=== PATIENT | female | born 1995 | race Caucasian/White ===

== ENCOUNTER 2024-12-27 06:23 | Emergency (ER) | payer OTHER, SELFPAY ==
--- NOTE | ~2024-12-27 | CT_ITS ---
EXAMINATION: CT abdomen pelvis wo con DATE: 12/27/2024 07:59 INDICATION: Left flank pain TECHNIQUE: Computed tomography (CT) of the abdomen and pelvis was performed without intravenous contr ast. Automated exposure control and iterative reconstruction technique were employed. The dose-length product was 1692.62 mGy-cm. COMPARISON: None FINDINGS: Lung bases are clear. Heart size is normal. No pericardial or pleural effusion. 1.7 cm hypodense lesi on in the right hepatic lobe near the confluence of the renal veins. Spleen, pancreas, bilateral adre nal glands are normal. Bilateral nonobstructing nephrolithiasis with 3 mm stone in the right kidney a nd 4 mm and 5-6 mm in the left kidney. In addition there is a 4 mm stone at the proximal most left ur eter with mild left hydronephrosis. No other ureteral stones or right-sided hydronephrosis. Bowels in cluding the appendix are normal. Bladder, anteverted uterus and bilateral adnexa are unremarkable. No free intraperitoneal gas or fluid. No pathologically enlarged abdominal or pelvic lymphadenopathy. B ones are unremarkable. IMPRESSION: 1. Bilateral nephrolithiasis with obstructing 4 mm proximal left ureteral stone with mild left hydron ephrosis. 2. Indeterminate 1.7 cm hypodense hepatic lesion. The absence of known liver disease or primary malig brad is most likely benign but would recommend further evaluation with pre and postcontrast MRI. Reviewed, dictated and finalized at location A. IMPRESSION: 1. Bilateral nephrolithiasis with obstructing 4 mm proximal left ureteral stone with mild left hydronephrosis. 2. Indeterminate 1.7 cm hypodense hepatic lesion. The absence of known liver di sease or primary malignancy is most likely benign but would recommend further e valuation with pre and postcontrast MRI.
[2024-12-27 06:34] VITALS: BP 135/83; PULSE 96; RESP 14; O2SAT 99
[2024-12-27 06:59] LABS: Basophils Percent Auto 0.3 % (0.2-1.2); Eosinophils Absolute Auto 0.2 K/mm3 (0-0.3); Eosinophils Percent Auto 2.1 % (0-4.4); Hematocrit 38.7 % (37.0-47.0); Hemoglobin 12.1 g/dL (12.0-15.0); Immature Granulocyte Absolute 0.03 K/mm3 (0.00-0.031); Immature Granulocyte Percent A 0.3 % (0-0.5); Lymphocytes Absolute Auto 3.65 K/mm3 (0.9-3.2); Lymphocytes Percent Auto 34.7 % (18.3-44.2); Mean Corpuscular HGB Conc 31.3 g/dl (32-36); Mean Corpuscular Hemoglobin 26.8 pg (26-34); Mean Corpuscular Volume 85.8 fl (80-100); Mean Platelet Volume 10.3 fl (7.4-10.4); Monocytes Absolute Auto 0.6 K/mm3 (0.1-0.6); Monocytes Percent Auto 5.8 % (2.6-8.5); Neutrophils Percent Auto 56.8 % (45.5-73.1); Platelet Count Result 324 k/mm3 (150-375); Red Blood Count 4.51 M/mm3 (4.2-5.4); Red Cell Distribution Width 13.7 % (11.5-14.5); White Blood Count 10.5 K/mm3 (4.5-10.0)
[2024-12-27 07:12] LABS: Alanine Aminotransferase 16 U/L (6-35); Albumin Level 4.1 g/dL (3.5-5.1); Alkaline Phosphatase 91 U/L (38-126); Anion Gap 10 mmol/L (4-12); Aspartate Amino Transferase 20 U/L (14-36); Bilirubin,Total 0.5 mg/dL (0.2-1.3); Blood Urea Nitrogen 17 mg/dL (7-17); Carbon Dioxide 20 mmol/L (22-30); Chloride 107 mmol/L (98-107); Estimated CRCL calculation 110 ml/min; Estimated Glomerular Filt Rate > 60; Glucose 142 mg/dL (65-110); Potassium 3.9 mmol/L (3.4-5.0); Sodium 137 mmol/L (137-145); Total Protein 7.3 g/dL (6.3-8.2)
[2024-12-27 07:27] LABS: BEDSIDEPREGUCG Negative (Negative)
[2024-12-27] MEDS: ONDANSETRON INJ 4 MG/2 ML VIAL IV PUSH (07:27)
[2024-12-27] MEDS: HYDROmorphone HCL INJ (*CRX) 2 MG/ML VIAL 0.5 MG IV PUSH (07:27)
[2024-12-27] MEDS: SODIUM CHLORIDE 0.9% IV 1,000 ML 999 ML IV CONT (07:28)
[2024-12-27 07:41] LABS: Add Urine Microscopic? YES; Appearance Urine Cloudy (Clear); Bacteria Urine 1+ /hpf; Bilirubin Urine Negative (Negative); Blood Urine 3+ (Negative); Color Urine Dark Yellow (Yellow); Glucose Urine UA Negative (Negative); Ketones Urine Trace mg/dL (Negative); Leukocyte Esterase Ur 1+ LEU/UL (Negative); Need Manual Microscopic Reviewed; Nitrate Urine Negative (Negative); Non Pathogenic Casts 0-2; Protein Urine 1+ mg/dL (Negative); RBC Urine >100 /hpf (0-2); Specific Grav Ur 1.026 (1.001-1.035); Squamous Epithelial Cell Urine Many /hpf (Few); pH Urine 5.5 (5.0-9.0)
[2024-12-27 07:49] VITALS: BP 143/89; PULSE 80; RESP 18; O2SAT 100
[2024-12-27 08:41] VITALS: BP 118/76; PULSE 80; RESP 15; O2SAT 100
--- NOTE | 2024-12-27 08:52 | ED_ITS ---
HPI - Abdominal Pain General Chief Complaint: Abdominal Pain Stated Complaint: possible left sided kidney stones Time Seen by Provider: 12/27/24 07:09 Source: patient, RN notes reviewed and old records reviewed Mode of arrival: ambulatory Limitations: no limitations History of Present Illness HPI narrative: This is a 29 year old female with history of kidney stones who presents for evaluation of left flank pain . She reports her pain started at 4 am this morning. She reports left flank pain that is radiating to her lower abdomen. She has nausea without vomiting. She took excederin for her pain without relief. She reports this pain is similar to previous episode of kidney stone 2 years ago. She reports pain 8/10. Related Data Allergies Allergy/AdvReac Type Severity Reaction Status Date / Time No Known Allergies Allergy Verified 12/27/24 07:25 [facility] Past Medical History Medical History (Updated 12/27/24 @ 09:05 by Milady Barcenas MD) Kidney stone Surgical History Surgical History (Updated 12/27/24 @ 08:59 by Milady Barcenas MD) No pertinent past surgical history Social History Social History (Updated 12/27/24 @ 08:58 by Milady Barcenas MD) Smoking status: Never smoker Exam 2 Const: General: no acute distress and alert Nutritional Appearance: well nourished and obese Orientation/consciousness: patient oriented x3 HENMT: Head: normal to inspection Eyes: EOM: EOMs intact bilaterally Resp: Effort & Inspection: normal respiratory effort Auscultation: clear to auscultation bilaterally Cardio: Rate: regular rate Rhythm: regular rhythm Heart sounds: no murmurs GI: GI Palp: Yes Soft to palpation, No Tenderness to palpation present (GI) and No Guarding due to palpation present (GI) Auscultation: normal bowel sounds : General: Yes no CVA tenderness Back/Spine/Pelvis: Back: no CVA tenderness Skin: General skin exam: normal color Rashes: no rashes Wounds: no wounds Neuro: General: patient oriented x3 and moves all extremities Cranial nerves: Yes Nystagmus not present Extrem: General: normal to inspection Psych: Mental Status: mental status grossly normal Affect: normal affect Attitude: cooperative Course Reevaluation(s) Reevaluation #1: Patient feels much better. I discussed she has left proximal stone that will need to pass. She understands discharge plan and follow up with urology Date: 12/27/24 Time: 09:02 Vital Signs Vital signs: Vital Signs Pulse Rate 96 12/27/24 06:34 Respiratory Rate 14 12/27/24 06:34 Blood Pressure 135/83 12/27/24 06:34 Pulse Oximetry 99 12/27/24 06:34 Pulse Rate 80 12/27/24 08:41 Respiratory Rate 15 12/27/24 08:41 Blood Pressure 118/76 12/27/24 08:41 Pulse Oximetry 100 12/27/24 08:41 MDM - Abdominal Pain MDM Narrative Medical decision making narrative: Patient reports with left flank pain. CT and labs were ordered. Wbc 10.5 with urine with rbc greater than [address] with bilateral nephrolithiasis and left proximal ureter stone. She was given zofran. Dilaudid 0.5 mg IV for pain. Her pain has improved. Stone is 4 mm without signs of sepsis so will discharge home with urology follow up . She was given return precautions. Differential Diagnosis Differential diagnosis: Likely abdominal pain, calculus of kidney, constipation, diverticulitis, endometriosis and gastroenteritis Medical Records Attestation: I reviewed the patient's medical records. Lab Data Attestation: I reviewed the patient's lab results. 12/27/24 06:53 12/27/24 06:53 Labs: Lab Results 12/27/24 12/27/24 12/27/24 Range/Units 06:53 07:06 07:24 WBC 10.5 H (4.5-10.0) K/mm3 RBC 4.51 (4.2-5.4) M/mm3 Hgb 12.1 (12.0-15.0) g/dL Hct 38.7 (37.0-47.0) % MCV 85.8 (80-100) fl MCH 26.8 (26-34) pg MCHC 31.3 L (32-36) g/dl RDW 13.7 (11.5-14.5) % Plt Count 324 (150-375) k/mm3 MPV 10.3 (7.4-10.4) fl Immature Gran % (Auto) 0.3 (0-0.5) % Neut % (Auto) 56.8 (45.5-73.1) % Lymph % (Auto) 34.7 (18.3-44.2) % Harris % (Auto) 5.8 (2.6-8.5) % Eos % (Auto) 2.1 (0-4.4) % Baso % (Auto) 0.3 (0.2-1.2) % Lymph # (Auto) 3.65 H (0.9-3.2) K/mm3 Harris # (Auto) 0.6 (0.1-0.6) K/mm3 Eos # (Auto) 0.2 (0-0.3) K/mm3 Baso # (Auto) 0.0 (0.0-0.1) K/mm3 Abs Immat Gran (auto) 0.03 (0.00-0.031) K/mm3 Absolute Neuts (auto) 6.0 (1.3-6.7) K/mm3 Absolute Nucleated RBC 0.000 (0.0-0.012) K/mm3 Nucleated RBC % 0.0 (0.0-0.2) % Sodium 137 (137-145) mmol/L Potassium 3.9 (3.4-5.0) mmol/L Chloride 107 (98-107) mmol/L Carbon Dioxide 20 L (22-30) mmol/L Anion Gap 10 (4-12) mmol/L BUN 17 (7-17) mg/dL Creatinine 0.92 (0.7-1.0) mg/dL Estim Creat Clear Calc 110 ml/min Estimated GFR > 60 (59 - ) Glucose 142 H (65-110) mg/dL Calcium 9.0 (8.4-10.2) mg/dL Total Bilirubin 0.5 (0.2-1.3) mg/dL AST 20 (14-36) U/L ALT 16 (6-35) U/L Alkaline Phosphatase 91 (38-126) U/L Total Protein 7.3 (6.3-8.2) g/dL Albumin 4.1 (3.5-5.1) g/dL Urine Color Dark yellow (Yellow) Urine Appearance Cloudy H (Clear) Urine pH 5.5 (5.0-9.0) Ur Specific [place] 1.026 (1.001-1.035) Urine Protein 1+ H (Negative) mg/dL Urine Glucose (UA) Negative (Negative) mg/dL Urine Ketones Trace H (Negative) mg/dL Ur Blood (Man) 3+ H (Negative) Urine Nitrate Negative (Negative) Urine Bilirubin Negative (Negative) Urine Urobilinogen 1.0 (<2.0) mg/dL Add Ur Microanalysis Reviewed Leukocyte Esterase Rfl 1+ H (Negative) ROSE/UL Urine RBC >100 H (0-2) /hpf Urine WBC 11-20 H (0-3) /hpf Ur Squamous Epith Cells Many H (Few) /hpf Urine Bacteria 1+ H /hpf Urine Casts 0-2 POC Urine HCG, Qual Negative (Negative) Imaging Data Radiologist's impression: ITS Impressions Abdomen/Pelvis CT 12/27/24 08:32 IMPRESSION: 1. Bilateral nephrolithiasis with obstructing 4 mm proximal left ureteral stone with mild left hydronephrosis. 2. Indeterminate 1.7 cm hypodense hepatic lesion. The absence of known liver disease or primary malignancy is most likely benign but would recommend further evaluation with pre and postcontrast MRI. Discharge Plan Discharge Clinical Impression: Calculus of proximal left ureter, Renal colic on left side Patient Disposition: Home Condition: Improved Instructions: Antibiotic Form, Kidney Stones (ED), How to Strain Your Urine (ED) Additional Instructions: Today you were found to have kidney stones. Stay hydrated. Take pain medication as needed. I recommend that your call urology if you have not past stone in 24 hours. REturn to ER if you develop fever, intractable pain or vomiting. Patient Language: Upper Sorbian Prescriptions: New ondansetron 4 mg tablet,disintegrating 4 mg PO Q8H PRN (Reason: nausea and vomiting) Qty: 10 0RF cephalexin 500 mg capsule 500 mg PO Q12H 7 Days Qty: 14 0RF hydrocodone-acetaminophen 5-325 mg tablet 1 tablet PO Q4H PRN (Reason: pain) Qty: 10 0RF tamsulosin [Flomax] 0.4 mg capsule 0.4 mg PO DAILY Qty: 7 0RF Follow-up/Referrals: Ajit Benoit MD [Physician] - [facility],DANE Blair [Primary Care Provider] -
[2024-12-27] MEDS: TAMSULOSIN HCL 0.4 MG CAPSULE PO (09:05)
== END 2024-12-27 09:19 | disposition home or self-care (01) ==
PROVIDERS: Emergency Medicine; Emergency Provider General Practice; PCP Nurse Practitioner
DX: N20.1 Calculus of ureter (principal); N23 Unspecified renal colic; Z87.442 Personal history of urinary calculi
CPT/HCPCS: 36415; 74176; 80053; 81001; 81025; 85025; 87086; 96361; 96374; 96375; 99284; A9270; J1171; J2405; J7030